=== PATIENT | female | born 1995 | race African-American/Black ===

== ENCOUNTER 2018-01-22 20:50 | Emergency (ER) | payer SELFPAY ==
[~2018-01-22] VITALS: Ht 167.6 cm; Wt 65.7 kg
[2018-01-22 22:18] VITALS: BP 106/71
[2018-01-22 22:19] LABS: BASOPHILS # (AUTO) 0.03 x10^3/uL (0-0.1); BASOPHILS % (AUTO) 1 % (0-1); EOSINOPHILS # (AUTO) 0.02 x10^3/uL (0-0.4); EOSINOPHILS % (AUTO) 0 % (1-7); LYMPHOCYTES # (AUTO) 2.37 x10^3/uL (1-3.4); LYMPHOCYTES % (AUTO) 49 % (22-44); MD NO; MEAN CORPUSCULAR HGB CONC 33.4 g/dL (32.4-35.8); MEAN CORPUSCULAR VOLUME 80.9 fL (80-100); MEAN PLATELET VOLUME 8.8 fL (7.4-10.4); MONOCYTES # (AUTO) 0.61 x10^3/uL (0.2-0.8); MONOCYTES % (AUTO) 13 % (2-9); NEUTROPHILS # (AUTO) 1.85 x10^3/uL (1.8-6.8); NEUTROPHILS % (AUTO) 38 % (42-75); PLATELET COUNT 227 x10^3/uL (130-400); RED BLOOD COUNT 4.48 x10^6/uL (3.82-5.3); RED CELL DISTRIBUTION WIDTH 13.3 % (9.6-15.2)
[2018-01-22 22:29] LABS: ANION GAP 7 mmol/L (5-15); CHLORIDE 107 mmol/L (98-107); CREATININE 0.84 mg/dL (0.55-1.02)
[2018-01-22 22:30] LABS: ALBUMIN 3.7 g/dL (3.4-5.0)
== END 2018-01-22 23:14 | disposition home or self-care (01) ==
LOC: ED 23:13
DX: R55 Syncope and collapse (principal); G43.909 Migraine, unspecified, not intractable, without status migrainosus
CPT/HCPCS: 36415; 80048; 82040; 84703; 85025; 93005; 99285

== ENCOUNTER 2019-09-11 13:39 | Emergency (ER) | payer MEDICAID ==
[~2019-09-11] VITALS: Ht 167.6 cm; Wt 78.9 kg
--- NOTE | 2019-09-11 14:22 | NUR ---
LUNCH RN: FROM LOBBY TO ROOM AT THIS TIME.
--- NOTE | 2019-09-11 14:30 | NUR ---
ASSUMING PT CARE AT THIS TIME. BEDSIDE REPORT FROM ALICIA BENITEZ RN.
--- NOTE | 2019-09-11 14:43 | NUR ---
THIS RN IN TO ASSESS PT. PT ON CELL PHONE TALKING TO FAMILY. 24 Y/O FEMALE PRESENTS TO ED WITH C/O "I NEED TO KNOW IF I'M . I'VE BEEN SPOTTING FOR TWO MONTHS. I TOOK ABOUT 10 TESTS AND THEY ALL HAVE BEEN NEGATIVE. I JUST NEED TO KNOW." EDMD BEDSIDE AT THIS TIME. PT PLACED ON CONT PULSE OX,NIBP. NO C/O N/V/D, TRAUMA, SYNCOPE, CP, SOB.
--- NOTE | 2019-09-11 14:47 | NUR ---
PT ALSO DENIES ABDOMINAL PAIN
[2019-09-11 14:54] VITALS: BP 122/81
--- NOTE | 2019-09-11 14:57 | NUR ---
LAB BEDSIDE. PT REFUSES TO KEEP ON NIBP AND PULSE OX. NADN
[2019-09-11 15:19] LABS: BASOPHILS # (AUTO) 0.01 x10^3/uL (0-0.1); BASOPHILS % (AUTO) 0 % (0-1); EOSINOPHILS # (AUTO) 0.06 x10^3/uL (0-0.4); EOSINOPHILS % (AUTO) 1 % (1-7); LYMPHOCYTES # (AUTO) 1.77 x10^3/uL (1-3.4); LYMPHOCYTES % (AUTO) 34 % (22-44); MD NO; MEAN CORPUSCULAR HEMOGLOBIN 26.7 pg (27.0-34.8); MEAN CORPUSCULAR HGB CONC 32.6 g/dL (32.4-35.8); MEAN CORPUSCULAR VOLUME 81.9 fL (80-100); MEAN PLATELET VOLUME 8.4 fL (7.4-10.4); MONOCYTES # (AUTO) 0.67 x10^3/uL (0.2-0.8); MONOCYTES % (AUTO) 13 % (2-9); NEUTROPHILS # (AUTO) 2.75 x10^3/uL (1.8-6.8); NEUTROPHILS % (AUTO) 52 % (42-75); PLATELET COUNT 302 x10^3/uL (130-400); RED BLOOD COUNT 4.44 x10^6/uL (3.82-5.3); RED CELL DISTRIBUTION WIDTH 13.5 % (9.6-15.2)
[2019-09-11 15:23] LABS: ALBUMIN 3.7 g/dL (3.4-5.0); ANION GAP 7 mmol/L (5-15); CALCIUM 8.9 mg/dL (8.5-10.1); CHLORIDE 106 mmol/L (98-107)
--- NOTE | 2019-09-11 15:25 | NUR ---
PT RESTING ON [employer] ON HER CELL PHONE. NADN. PT STILL REFUSES NIBP AND CONT PULSE OX
--- NOTE | 2019-09-11 15:41 | NUR ---
PT AMBULATORY WITH STEADY WITH STEADY GAIT TO BATHROOM ON CELL PHONE.
--- NOTE | 2019-09-11 15:51 | NUR ---
PT TO IMAGING
--- NOTE | 2019-09-11 16:15 | NUR ---
PT BACK FROM IMAGING. REFUSES NIBP AND PULSE OX. PT ON SURI TALKING ON CELL PHONE.
--- NOTE | 2019-09-11 17:17 | NUR ---
Patient/Caregiver given discharge instructions and they have confirmed that they understand the instructions. Patient ambulatory with steady gait. PT LEFT WITH ALL PERSONAL BELONGINGS. PT REFUSED D/C VITAL SIGNS. NADN
== END 2019-09-11 17:20 | disposition home or self-care (01) ==
LOC: ED 17:10
DX: O20.0 Threatened abortion (principal); Z3A.08 8 weeks gestation of pregnancy
CPT/HCPCS: 36415; 76801; 80048; 82040; 84702; 84703; 85025; 86901; 99284

== ENCOUNTER 2019-09-13 11:56 | Emergency (ER) | payer MEDICAID ==
[~2019-09-13] VITALS: Ht 167.6 cm; Wt 77.6 kg
[2019-09-13 12:16] VITALS: BP 139/52
== END 2019-09-13 14:36 | disposition home or self-care (01) ==
LOC: ED 14:30
DX: O03.9 Complete or unspecified spontaneous abortion without complication (principal)
CPT/HCPCS: 36415; 84702; 99283

== ENCOUNTER 2020-02-25 13:19 | Emergency (ER) | payer MEDICAID ==
[~2020-02-25] VITALS: Ht 167.6 cm; Wt 77.7 kg
[2020-02-25 14:01] VITALS: BP 124/61
[2020-02-25 14:32] LABS: MICROSCOPIC INDICATED
--- NOTE | 2020-02-25 14:33 | NUR ---
PT AMBULATES FROM LOBBY TO ROOM WITH STEADY GAIT. PT ACCOMPANIED BY PARTNER. PT CHANGED INTO GOWN AT THIS TIME AND PROVIDED WARM BLANKET. CALL LIGHT IS WITHIN REACH.
--- NOTE | 2020-02-25 16:31 | NUR ---
PT D/C WITH D/C SUMMARY AND SCRIPTS. ALL QUESTIONS ANSWERED. PT AMBULATES TO REGISTRATION DESK WITH STEADY GAIT FOR D/C HOME WITH PARTNER. PT DENIES ANY OTHER NEEDS PERTAINING TO THIS VISIT.
== END 2020-02-25 16:35 | disposition home or self-care (01) ==
LOC: ED 16:15
DX: O26.91 Pregnancy related conditions, unspecified, first trimester (principal); R11.0 Nausea; R10.9 Unspecified abdominal pain; Z3A.01 Less than 8 weeks gestation of pregnancy
CPT/HCPCS: 81001; 81025; 87086; 99283

== ENCOUNTER 2020-03-06 17:19 | Emergency (ER) | payer MEDICAID ==
[~2020-03-06] VITALS: Ht 167.6 cm; Wt 74.4 kg
[2020-03-06] MEDS ORDERED: ONDANSETRON ODT 4 MG ONE (18:06)
[2020-03-06] MEDS ORDERED: FAMOTIDINE 20 MG/2 ML IVPush ONE (18:30)
[2020-03-06] MEDS ORDERED: ONDANSETRON ODT 4 MG PO ONE (18:30)
[2020-03-06] MEDS ORDERED: ONDANSETRON 2MG/ML, 2ML IVPush ONE (18:30)
[2020-03-06] MEDS ORDERED: SODIUM CHLORIDE FLUSH 10ML SYR IVF ONE (18:30)
[2020-03-06] MEDS ORDERED: SODIUM CHLORIDE 0.9% 1,000ML IVBOLUS ONE ×2 (18:30→20:00)
[2020-03-06] MEDS ORDERED: ONDANSETRON 2MG/ML, 2ML ONE (18:34)
[2020-03-06] MEDS ORDERED: FAMOTIDINE 20 MG/2 ML ONE (18:34)
[2020-03-06 18:48] LABS: BASOPHILS # (AUTO) 0.02 x10^3/uL (0-0.1); BASOPHILS % (AUTO) 0 % (0-1); EOSINOPHILS # (AUTO) 0.01 x10^3/uL (0-0.4); EOSINOPHILS % (AUTO) 0 % (1-7); LYMPHOCYTES # (AUTO) 1.07 x10^3/uL (1-3.4); LYMPHOCYTES % (AUTO) 20 % (22-44); MD NO; MEAN CORPUSCULAR HEMOGLOBIN 27.3 pg (27.0-34.8); MEAN CORPUSCULAR HGB CONC 32.9 g/dL (32.4-35.8); MEAN CORPUSCULAR VOLUME 82.9 fL (80-100); MEAN PLATELET VOLUME 8.7 fL (7.4-10.4); MONOCYTES # (AUTO) 0.42 x10^3/uL (0.2-0.8); MONOCYTES % (AUTO) 8 % (2-9); NEUTROPHILS # (AUTO) 3.91 x10^3/uL (1.8-6.8); NEUTROPHILS % (AUTO) 72 % (42-75); PLATELET COUNT 287 x10^3/uL (130-400); RED BLOOD COUNT 4.85 x10^6/uL (3.82-5.3); RED CELL DISTRIBUTION WIDTH 13.9 % (9.6-15.2)
[2020-03-06 18:52] LABS: ALBUMIN 4.1 g/dL (3.4-5.0); ANION GAP 7 mmol/L (5-15); CALCIUM 9.4 mg/dL (8.5-10.1); CHLORIDE 107 mmol/L (98-107); CREATININE 0.72 mg/dL (0.55-1.02)
[2020-03-06 18:54] LABS: MICROSCOPIC INDICATED
--- NOTE | 2020-03-06 18:55 | NUR ---
PT CAME IN CO OF NV. PT STATES "I THINK IM 5 WEEKS PREG. I HAVE BEEN VOMITTING ALL DAY AND I CANT KEEP ANYTHING DOWN". PT WAS ACTIVELY VOMITTING IN ROOM. NOTIFIED. SEE MAR FOR INTERVETIONS. IV STARTED. FLUIDS INFUSING. LABS SENT
--- NOTE | 2020-03-06 19:28 | NUR ---
PT BACK FROM US. REPORTS NAUSEA IMPROVEMENT. "IM STARTING TO FEEL BETTER"
[2020-03-06] MEDS ORDERED: METOCLOPRAMIDE 5 MG/ML, 2ML ONE (19:54)
[2020-03-06 19:59] VITALS: BP 127/77
[2020-03-06] MEDS ORDERED: METOCLOPRAMIDE 5 MG/ML, 2ML IVPush ONE (20:00)
--- NOTE | 2020-03-06 20:00 | NUR ---
PT STILL VOMITTING. MD NOTIFIED. SEE MAR FOR INTERVENTIONS
[2020-03-06] MEDS ORDERED: DIPHENHYDRAMINE 50 MG/ML, 1ML ONE (20:04)
--- NOTE | 2020-03-06 20:10 | NUR ---
AFTER REGLAN DOSE PT STARTING BECOMING SOB. NOTIFIED. SEE MAR FOR INTERVENTIONS
[2020-03-07] MEDS ORDERED: PREN1TAB62 PO (04:29)
== END 2020-03-06 21:26 | disposition home or self-care (01) ==
LOC: ED 21:20
DX: O21.0 Mild hyperemesis gravidarum (principal); E86.9 Volume depletion, unspecified; O21.8 Other vomiting complicating pregnancy; O99.331 Smoking (tobacco) complicating pregnancy, first trimester; Z3A.01 Less than 8 weeks gestation of pregnancy
CPT/HCPCS: 36415; 76801; 80048; 81001; 82040; 84702; 85025; 96361; 96374; 96375; 99284; J2405; J2765; J3490; J7030; Q0162

== ENCOUNTER 2020-03-07 01:59 | Observation (INO) | payer MEDICAID ==
[~2020-03-07] VITALS: Ht 167.6 cm; Wt 72.7 kg
[2020-03-07] MEDS ORDERED: SODIUM CHLORIDE 0.9% 1,000 ML IV ONE ×2 (02:05→02:27)
--- NOTE | 2020-03-07 02:09 | NUR ---
FIRST CONTACT WITH PT: PT BIB [facility] FOR N/V AND ABD PAIN. WAS SEEN HERE EARLIER TODAY FOR N/V BU TNEW ONSET OF EPIGASTRIC PAIN, DENIES CRAMPING OR BLEEDING. . PT LAYING DOWN IN GURNEY, ROCKING AND MOANING, PT GIVEN WARM BLANKET FOR COMFORT AND PT APPEARS TO SETTLE DOWN A BIT MORE. PT VSS, NAD, GROSS NEURO INTACT, CMS INTACT, SKIN COLOR WITHIN NORMAL LIMITS WARM AND DRY. WCTM. SIOMARA BLISS AT BS FOR EVAL AND POC. PT GIVEN 4 MG ODT ZOFRAN EN ROUTE.
[2020-03-07] MEDS ORDERED: SODIUM CHLORIDE FLUSH 10ML SYR IVF PRN (02:30)
[2020-03-07] MEDS ORDERED: ONDANSETRON 2MG/ML, 2ML IVPush PRN (02:30)
[2020-03-07] MEDS ORDERED: SODIUM CHLORIDE FLUSH 10ML SYR IVF ONE (02:30)
[2020-03-07] MEDS ORDERED: DIPHENHYDRAMINE 50 MG/ML, 1ML IVPush ONE (03:00)
[2020-03-07] MEDS ORDERED: DIPHENHYDRAMINE 50 MG/ML, 1ML ONE (03:14)
--- NOTE | 2020-03-07 03:19 | NUR ---
REPORT CALLED TO RN, PT GOING UP TO FLOOR, PT CARE TRANSFERRED AT THIS TIME. PT MEDICATED PER NOV. MONIQUE UMANZOR.
[2020-03-07] MEDS: FAMOTIDINE 20 MG/2 ML IVPush SCH ×2 (03:59→17:46)
[2020-03-07] MEDS: D5%-0.45% NACL 1,000 ML IV SCH ×3 (03:59→19:34)
[2020-03-07 04:14] VITALS: BP 139/87
[2020-03-07] MEDS ORDERED: PREN1TAB62 PO (04:29)
[2020-03-07] MEDS ORDERED: MAALOX/HYOSCYAMINE/LIDOCAINE 45 ML BTL PO ONE (05:00)
[2020-03-07] MEDS: MORPHINE SULFATE 4 MG/ML, 1ML IVPush PRN ×2 (05:03→19:42)
[2020-03-07 07:07] VITALS: BP 118/55
[2020-03-07 12:49] VITALS: BP 111/63
[2020-03-07 19:56] VITALS: BP 118/76
[2020-03-07] MEDS: METOCLOPRAMIDE 5 MG/ML, 2ML IVPush PRN (22:47)
[2020-03-08] MEDS: ONDANSETRON 2MG/ML, 2ML IVPush PRN ×2 (01:57→07:49)
[2020-03-08 01:58] VITALS: BP 148/87
[2020-03-08] MEDS: D5%-0.45% NACL 1,000 ML IV SCH ×2 (03:42→14:31)
[2020-03-08] MEDS: FAMOTIDINE 20 MG/2 ML IVPush SCH ×2 (03:42→16:12)
[2020-03-08] MEDS: MORPHINE SULFATE 4 MG/ML, 1ML IVPush PRN (04:53)
[2020-03-08] MEDS: METOCLOPRAMIDE 5 MG/ML, 2ML IVPush PRN (04:53)
[2020-03-08 06:55] VITALS: BP 140/61
[2020-03-08 08:57] VITALS: BP 132/77
[2020-03-08] MEDS ORDERED: MORPHINE SULFATE 4 MG/ML, 1ML IVPush ONE (11:30)
[2020-03-08 13:31] LABS: BASOPHILS # (AUTO) 0.01 x10^3/uL (0-0.1); BASOPHILS % (AUTO) 0 % (0-1); EOSINOPHILS % (AUTO) 0 % (1-7); LYMPHOCYTES # (AUTO) 0.99 x10^3/uL (1-3.4); LYMPHOCYTES % (AUTO) 13 % (22-44); MD NO; MEAN CORPUSCULAR HEMOGLOBIN 27.2 pg (27.0-34.8); MEAN CORPUSCULAR VOLUME 82.4 fL (80-100); MEAN PLATELET VOLUME 8.8 fL (7.4-10.4); MONOCYTES # (AUTO) 0.33 x10^3/uL (0.2-0.8); MONOCYTES % (AUTO) 4 % (2-9); NEUTROPHILS % (AUTO) 82 % (42-75); PLATELET COUNT 234 x10^3/uL (130-400); RED BLOOD COUNT 3.94 x10^6/uL (3.82-5.3); RED CELL DISTRIBUTION WIDTH 13.5 % (9.6-15.2)
[2020-03-08 13:32] LABS: ALBUMIN 3.3 g/dL (3.4-5.0); ANION GAP 7 mmol/L (5-15); CALCIUM 8.1 mg/dL (8.5-10.1); CHLORIDE 106 mmol/L (98-107)
[2020-03-08 13:35] LABS: ALANINE AMINOTRANSFERASE 29 U/L (12-78); ALKALINE PHOSPHATASE 62 U/L (45-117); BILIRUBIN,TOTAL 0.3 mg/dL (0.2-1.0); TOTAL PROTEIN 7.2 g/dL (6.4-8.2)
[2020-03-08 15:00] VITALS: BP 129/68
[2020-03-08] MEDS ORDERED: ACETAMINOPHEN 325 MG TABLET PO PRN (15:00)
[2020-03-08] MEDS ORDERED: POTASSIUM CHLORIDE 40 MEQ in SODIUM CHLORIDE 0.9% 500 ML IV ONE (15:00)
[2020-03-08 19:59] VITALS: BP 114/65
[2020-03-08] MEDS: ZOLPIDEM 5MG TABLET PO SCH (21:00)
[2020-03-09] MEDS: D5%-0.45% NACL 1,000 ML IV SCH (02:00)
[2020-03-09 02:23] VITALS: BP 123/80
[2020-03-09] MEDS: ONDANSETRON 2MG/ML, 2ML IVPush PRN ×2 (03:26→13:33)
[2020-03-09] MEDS: ZOLPIDEM 5MG TABLET PO SCH ×2 (03:46→20:18)
[2020-03-09] MEDS: FAMOTIDINE 20 MG/2 ML IVPush SCH ×2 (03:52→16:05)
[2020-03-09] MEDS: METOCLOPRAMIDE 5 MG/ML, 2ML IVPush PRN ×2 (04:26→20:36)
[2020-03-09 05:38] LABS: ANION GAP 7 mmol/L (5-15); CALCIUM 7.7 mg/dL (8.5-10.1); CHLORIDE 109 mmol/L (98-107)
[2020-03-09 05:40] LABS: CREATININE 0.56 mg/dL (0.55-1.02)
[2020-03-09 07:02] VITALS: BP 148/68
[2020-03-09 15:11] VITALS: BP 135/84
[2020-03-09] MEDS: ONDANSETRON ODT 4 MG PO SCH (16:32)
[2020-03-09] MEDS: CALCIUM CARBONATE 500 MG TAB.CHEW PO SCH (16:32)
[2020-03-09 19:55] VITALS: BP 137/77
[2020-03-09] MEDS ORDERED: POTASSIUM CHLORIDE 40 MEQ in D5%-LACTATED RINGERS 1,000 ML IV ONE (22:30)
[2020-03-10 02:11] VITALS: BP 118/69
[2020-03-10] MEDS: FAMOTIDINE 20 MG/2 ML IVPush SCH (03:48)
[2020-03-10] MEDS: METOCLOPRAMIDE 5 MG/ML, 2ML IVPush PRN (05:20)
[2020-03-10] MEDS: ONDANSETRON ODT 4 MG PO SCH ×2 (07:36→11:03)
[2020-03-10] MEDS: CALCIUM CARBONATE 500 MG TAB.CHEW PO SCH ×2 (07:36→11:03)
[2020-03-10] MEDS ORDERED: METOCLOPRAMIDE IV SCH ×2 (08:30→09:06)
[2020-03-10] MEDS ORDERED: POTASSIUM CHLORIDE 20 MEQ in D5%-LACTATED RINGERS 1,000 ML IV SCH (08:30)
[2020-03-10] MEDS ORDERED: DEXTROSE 5% IV SCH ×2 (08:30→09:06)
[2020-03-10 08:37] VITALS: BP 165/95
[2020-03-10] MEDS ORDERED: PRENATAL VIT/IRON/FA 1 EACH TABLET PO SCH (09:00)
[2020-03-10 10:33] LABS: ALANINE AMINOTRANSFERASE 62 U/L (12-78); ALBUMIN 3.2 g/dL (3.4-5.0); ANION GAP 9 mmol/L (5-15); CALCIUM 8.2 mg/dL (8.5-10.1); CHLORIDE 106 mmol/L (98-107); CREATININE 0.54 mg/dL (0.55-1.02)
[2020-03-10 10:35] LABS: ALKALINE PHOSPHATASE 65 U/L (45-117); BILIRUBIN,TOTAL 0.4 mg/dL (0.2-1.0); TOTAL PROTEIN 7.1 g/dL (6.4-8.2)
[2020-03-10 13:44] VITALS: BP 139/84
[2020-03-10] MEDS ORDERED: DOXYLAMINE 25MG TABLET PO SCH ×2 (14:00→21:00)
[2020-03-10] MEDS ORDERED: PYRIDOXINE 25MG TABLET PO SCH (14:00)
[2020-03-10] MEDS ORDERED: DOXY25TA45 PO (14:24)
[2020-03-10] MEDS ORDERED: PYRI25TA2 PO (14:24)
[2020-03-10] MEDS ORDERED: METO5VIA30 PO (14:24)
[2020-03-10] MEDS ORDERED: PYRIDOXINE 50MG TABLET PO SCH (21:00)
== END 2020-03-10 15:15 | disposition left against medical advice (07) ==
LOC: ED 02:03 → INTOOBSV 02:54 → EDIP 02:54 → 3N 03:21
PROVIDERS: ADMIT Obstetrics & Gynecology; ATTEND Obstetrics & Gynecology
DX: O21.1 Hyperemesis gravidarum with metabolic disturbance (principal); O99.281 Endocrine, nutritional and metabolic diseases complicating pregnancy, first trimester; E86.9 Volume depletion, unspecified; Z3A.01 Less than 8 weeks gestation of pregnancy
CPT/HCPCS: 36415; 36573; 76700; 80048; 80053; 85025; 96361; 96365; 96366; 96367; 96375; 96376; 99284; C1751; G0378; J1200; J2270; J2405; J2765; J3480; J3490; J7030; J7040; J7060; J7121; Q0162

== ENCOUNTER 2020-03-11 10:48 | Emergency (ER) | payer MEDICAID ==
[~2020-03-11] VITALS: Ht 167.6 cm; Wt 74.0 kg
[~2020-03-11 10:48] MED LIST: DOXY25TA45 PO; METO5VIA30 PO; PREN1TAB62 PO; PYRI25TA2 PO
--- NOTE | 2020-03-11 11:50 | NUR ---
PT MEDICATED ORDERD. PT C/O CONTINUED N/V AFTER BEING DISCHARGED YESTERDAY AFTER AN ADMIT FOR HYPEREMESIS GRAVIDUM. PT IS 7 WEEKS PREGNENANT. PT ALSO C/O POSSBLE FEVERS LAST NOC WITH CHILLS AND DAVIS. PT DENIES DAVIS NOW BUT REPORTS CHILLS. WAITING FOR RESULTS.
[2020-03-11] MEDS ORDERED: METOCLOPRAMIDE 5 MG/ML, 2ML ONE (11:53)
[2020-03-11 11:59] LABS: BASOPHILS # (AUTO) 0.02 x10^3/uL (0-0.1); BASOPHILS % (AUTO) 0 % (0-1); EOSINOPHILS % (AUTO) 0 % (1-7); LYMPHOCYTES # (AUTO) 1.82 x10^3/uL (1-3.4); LYMPHOCYTES % (AUTO) 21 % (22-44); MD NO; MEAN CORPUSCULAR HEMOGLOBIN 27.4 pg (27.0-34.8); MEAN CORPUSCULAR HGB CONC 33.1 g/dL (32.4-35.8); MEAN CORPUSCULAR VOLUME 82.8 fL (80-100); MEAN PLATELET VOLUME 8.5 fL (7.4-10.4); MONOCYTES # (AUTO) 0.73 x10^3/uL (0.2-0.8); MONOCYTES % (AUTO) 8 % (2-9); NEUTROPHILS # (AUTO) 6.08 x10^3/uL (1.8-6.8); NEUTROPHILS % (AUTO) 70 % (42-75); PLATELET COUNT 290 x10^3/uL (130-400); RED BLOOD COUNT 4.43 x10^6/uL (3.82-5.3); RED CELL DISTRIBUTION WIDTH 14.1 % (9.6-15.2)
[2020-03-11] MEDS ORDERED: SODIUM CHLORIDE 0.9% 1,000ML IVBOLUS ONE ×2 (12:00→13:30)
[2020-03-11] MEDS ORDERED: METOCLOPRAMIDE 5 MG/ML, 2ML IVPush ONE (12:00)
[2020-03-11 12:07] LABS: ALANINE AMINOTRANSFERASE 107 U/L (12-78); ALBUMIN 3.5 g/dL (3.4-5.0); ANION GAP 7 mmol/L (5-15); CALCIUM 8.7 mg/dL (8.5-10.1); CHLORIDE 103 mmol/L (98-107); CREATININE 0.61 mg/dL (0.55-1.02)
[2020-03-11 12:09] LABS: ALKALINE PHOSPHATASE 74 U/L (45-117); BILIRUBIN,TOTAL 0.5 mg/dL (0.2-1.0); TOTAL PROTEIN 7.6 g/dL (6.4-8.2)
--- NOTE | 2020-03-11 12:52 | NUR ---
PT GIVEN WATER PER T REQUEST AND OK WITH ALEC PAC ABOT 30 MINUTES AGO. PT REPORTS SHE IS FEELING BETTER. WAITING FOR RESULTS.
[2020-03-11 13:08] LABS: MICROSCOPIC INDICATED
[2020-03-11] MEDS ORDERED: POTASSIUM CHLORIDE 20 MEQ TAB.ER.PRT ONE (13:17)
[2020-03-11] MEDS ORDERED: POTASSIUM CHLORIDE 10% 40 MEQ/30 ML UDC PO ONE (13:30)
[2020-03-11] MEDS ORDERED: POTASSIUM CHLORIDE 20 MEQ TAB.ER.PRT PO ONE (13:30)
[2020-03-11] MEDS ORDERED: LACTATED RINGERS 1,000 ML IVBOLUS ONE (14:00)
[2020-03-11 14:19] VITALS: BP 128/76
== END 2020-03-11 14:22 | disposition home or self-care (01) ==
LOC: ED 11:46
DX: O21.0 Mild hyperemesis gravidarum (principal); Z3A.01 Less than 8 weeks gestation of pregnancy; E86.9 Volume depletion, unspecified
CPT/HCPCS: 36415; 80053; 81001; 85025; 87086; 96361; 96374; 99283; J2765; J7030; J7120

== ENCOUNTER 2020-04-11 07:39 | Emergency (ER) | payer MEDICAID ==
[~2020-04-11] VITALS: Ht 167.6 cm; Wt 70.0 kg
--- NOTE | 2020-04-11 07:43 | NUR ---
Patient ABRAHAM DINORA with c/o of continous vomiting since 0100 this morning. Patient is 12 weeks and has a check-up April 19. Patient states she normally only has 2 episodes of emesis per day. Patient does not take any meds at home besides a vitamin. Patient is A&Ox4, resting in bed, one episode of bile-like emesis.
[2020-04-11] MEDS ORDERED: METOCLOPRAMIDE 5 MG/ML, 2ML ONE (08:12)
[2020-04-11 08:21] LABS: BASOPHILS # (AUTO) 0.01 x10^3/uL (0-0.1); BASOPHILS % (AUTO) 0 % (0-1); EOSINOPHILS # (AUTO) 0.02 x10^3/uL (0-0.4); EOSINOPHILS % (AUTO) 0 % (1-7); LYMPHOCYTES % (AUTO) 18 % (22-44); MD NO; MEAN CORPUSCULAR HEMOGLOBIN 27.6 pg (27.0-34.8); MEAN CORPUSCULAR HGB CONC 33.3 g/dL (32.4-35.8); MEAN PLATELET VOLUME 8.1 fL (7.4-10.4); MONOCYTES # (AUTO) 0.22 x10^3/uL (0.2-0.8); MONOCYTES % (AUTO) 3 % (2-9); NEUTROPHILS # (AUTO) 5.12 x10^3/uL (1.8-6.8); NEUTROPHILS % (AUTO) 78 % (42-75); PLATELET COUNT 337 x10^3/uL (130-400); RED BLOOD COUNT 4.56 x10^6/uL (3.82-5.3); RED CELL DISTRIBUTION WIDTH 13.8 % (9.6-15.2)
[2020-04-11 08:23] VITALS: BP 131/76
[2020-04-11 08:27] LABS: ALANINE AMINOTRANSFERASE 26 U/L (12-78); ALBUMIN 3.5 g/dL (3.4-5.0); ANION GAP 10 mmol/L (5-15); CALCIUM 9.4 mg/dL (8.5-10.1); CHLORIDE 108 mmol/L (98-107); CREATININE 0.58 mg/dL (0.55-1.02)
--- NOTE | 2020-04-11 08:39 | NUR ---
22 gauge IV started, IV Reglan given and 1 Liter NS bolus started. Patient resting in bed, no further needs at this time.
[2020-04-11 08:44] LABS: ALKALINE PHOSPHATASE 71 U/L (45-117); BILIRUBIN,TOTAL 0.3 mg/dL (0.2-1.0)
[2020-04-11] MEDS ORDERED: METOCLOPRAMIDE 5 MG/ML, 2ML IVPush ONE (09:00)
[2020-04-11] MEDS ORDERED: SODIUM CHLORIDE 0.9% 1,000ML IVBOLUS ONE (09:00)
--- NOTE | 2020-04-11 09:05 | NUR ---
PRECEPTING RN: PT STATED "I'M SO HUNGRY. CAN I HAVE SOMETHING TO EAT". PT PROVIDED WITH TYLER AND ANI WITH OKAY BY IZAIAH SARAH.
[2020-04-11 10:13] LABS: MICROSCOPIC INDICATED
--- NOTE | 2020-04-11 10:29 | NUR ---
Patient is resting comfortably in bed, UA sent to lab. Vital Signs within normal limits, no recent episodes of emesis, no further needs at this time.
== END 2020-04-11 11:06 | disposition home or self-care (01) ==
LOC: ED 08:42
DX: O21.1 Hyperemesis gravidarum with metabolic disturbance (principal); O21.9 Vomiting of pregnancy, unspecified; Z3A.11 11 weeks gestation of pregnancy
CPT/HCPCS: 36415; 76801; 80053; 81001; 84702; 85025; 96361; 96374; 99284; J2765; J7030